=== PATIENT | female | born 1985 | race Caucasian/White ===

== ENCOUNTER → 2020-07-21 09:49 | Outpatient (CLI) | payer OTHER, MEDICAID, SELFPAY ==
[2020-07-22 22:16] LABS: COVID19 Sendout Not Detected (Not Detect)
== END ==
PROVIDERS: Visit Provider Physician Assistant
DX: Z01.812 Encounter for preprocedural laboratory examination (principal)
CPT/HCPCS: 87635

== ENCOUNTER → 2020-08-11 13:17 | Outpatient (CLI) | payer OTHER, MEDICAID, SELFPAY ==
[2020-08-12 13:18] LABS: COVID19 Sendout Not Detected (Not Detect)
== END ==
PROVIDERS: Visit Provider Nurse Practitioner
DX: Z20.828 Contact with and (suspected) exposure to other viral communicable diseases (principal)
CPT/HCPCS: 87635

== ENCOUNTER 2021-01-31 19:15 | Emergency (ER) | payer OTHER, MEDICAID, SELFPAY ==
--- NOTE | 2021-01-31 19:37 | ED_ITS ---
HPI - Eye Problem General Chief complaint: Eye Problems Stated complaint: states, scratched cornea right eye Time Seen by Provider: 01/31/21 19:29 Source: patient Mode of arrival: Ambulatory Limitations: no limitations History of Present Illness HPI Narrative: 35-year-old female daily smoker with noncontributory medical history presents with significant other and a chief complaint of a right eye injury suffered just prior to arrival. Her right eye was accidentally scratched by his fingernail and she now has burning pain and some blurring of vision. She does not were contacts. Her tetanus is current. She denies other injury. MD chief complaint: eye pain and eye injury Onset (ago): minute(s) Onset description: sudden Duration: constant Location: right eye Eye Symptoms: burning Place: home Mechanism: direct trauma Severity: mild If Pain, Quality: sharp and burning Associated symptoms: none Related Data Patient tetanus UTD: Yes Allergies Allergy/AdvReac Type Severity Reaction Status Date / Time No Known Drug Allergies Allergy Verified 01/31/21 20:45 Review of Systems Constitutional Constitutional: Denies chills, Denies fatigue, Denies fever(s), Denies frequent falls, Denies lethargy and Denies weakness Eyes Eyes: Denies change in vision, Denies eye discharge, Reports irritation, Denies loss of vision and Reports eye pain ENT Ears, Nose, Mouth, and Throat: Denies change in voice, Denies dizziness, Denies neck pain, Denies sore throat and Denies throat swelling Cardiovascular Cardiovascular: Denies chest pain, Denies irregular heart rhythm, Denies ligh theadedness, Denies palpitations, Denies dyspnea, Denies dyspnea on exertion and Denies orthopnea Respiratory Respiratory: Denies cough, Denies dyspnea, Denies dyspnea on exertion and Denies wheezing Gastrointestinal Gastrointestinal: Denies abdominal pain, Denies change in bowel habits, Denies diarrhea, Denies nausea and Denies vomiting Musculoskeletal Musculoskeletal: Denies neck pain and Denies numbness Integumentary/Breasts Skin/Breast: Denies pruritus, Denies erythema, Denies rash and Denies wounds Neurologic Neurologic: Denies behavioral changes, Denies confusion, Denies dizziness, Denies frequent falls, Denies loss of vision, Denies numbness and Denies weakness Psychiatric Psychiatric: Denies anxiety, Denies behavioral changes, Denies confusion, Denies depression, Denies homicidal ideation and Denies suicidal ideation Endocrine Endocrine: Denies fatigue, Denies flushing and Denies palpitations Hematologic/Lymphatic Hematologic/Lymphatic: Denies easy bruising Allergic/Immunologic Allergic/Immunologic: Denies urticaria, Denies throat swelling and Denies wheezing Patient History Social History Smoking Status: Current every day smoker Smoking Status: Never smoker alcohol intake frequency: 0-2 drinks per day Substance Use Type: does not use Exam Narrative Exam Narrative: GEN: AOx3 and in mild distress EYES: Pupils are equal, round, and reactive to light and accommodation. Extraoccular muscles are intact bilaterally. Mild right eye scleral injection. Corneal abrasion is visible with the naked eye. No foreign body noted, upper lid diogenes id. Complete resolution of symptoms with use of proparacaine. Dye uptake with fluorescein consistent with corneal abrasion CHEST: Lungs are clear to auscultation bilaterally and free of wheezes, rales, or rhonchi. Heart rate is regular rhythm, there are no murmurs, clicks, rubs, or gallops. There is no chest wall tenderness. ABD: Abdomen is soft and nontender. There is no guarding or rebound. Bowel sounds are normal in all 4 quadrants. There is no mass or organomegaly. EXT: Full painless ROM of all extremities with no loss of sensation or strength. SKIN: Warm, pink, and dry. No erythema or rash Initial Vital Signs Initial Vital Signs: Vital Signs Pulse Rate 75 01/31/21 20:23 Blood Pressure 129/87 01/31/21 20:23 Pulse Oximetry 97 01/31/21 20:23 Course Orders Ordered: Discontinued Medications Fluorescein Sodium (Fluorescein 1 Mg Strip) 1 mg EYE-RIGHT NOW ONE Stop: 01/31/21 19:36 Last Admin: 01/31/21 20:39 Dose: 1 mg Documented by: MARYLIN Proparacaine HCl (Proparacaine 0.5% Oph Amrita) 1 drops EYE-RIGHT NOW ONE Stop: 01/31/21 19:36 Last Admin: 01/31/21 20:38 Dose: 1 drop Documented by: MARYLIN Sulfacetamide (Sulfacetamide 10% Oph Prepack) 1 bottle MISC SEEINSTR ONE Stop: 01/31/21 20:34 Last Admin: 01/31/21 20:38 Dose: 1 bottle Documented by: MARYLIN Discharge Plan Departure Patient Disposition: Home Clinical Impression: Corneal abrasion Qualifiers: Encounter type: initial encounter Laterality: right Qualified Code(s): S05.01XA - Injury of conjunctiva and corneal abrasion without foreign body, right eye, initial encounter Instructions: DI for Corneal Abrasion Activity Restrictions/Additional Instructions: *You have been diagnosed with [acute corneal abrasion] *What to do: *Take medications as directed: 1-2 drops in Right eye while awake until you are better (usually only a few days) *Follow up with your primary care provider in 2-3 days, call for an appointment. Let them know you were seen in the Emergency Department and that we ask that you be seen in follow up *Return to ER if you should have any new, worsening or concerning symptoms Referrals: Sohan Huffman MD [Physician] -
[2021-01-31 20:23] VITALS: BP 129/87; PULSE 75; O2SAT 97
[2021-01-31 20:26] VITALS: RESP 18; TEMP 37.3
[2021-01-31 20:27] VITALS: BMI 29.2
[2021-01-31] MEDS: PROPARACAINE 0.5% OPHTH SOL 1 DROPS EYE-RIGHT (20:38)
[2021-01-31] MEDS: SULFACETAMIDE 10% OPHTH PREPACK 1 BOTTLE MISC (20:38)
[2021-01-31] MEDS: FLUORESCEIN 1 MG STRIP EYE-RIGHT (20:39)
== END 2021-01-31 20:46 | disposition home or self-care (01) ==
PROVIDERS: Emergency Provider Emergency Medicine
DX: S05.01XA Injury of conjunctiva and corneal abrasion without foreign body, right eye, initial encounter (principal)
CPT/HCPCS: 99282

== ENCOUNTER 2023-07-25 16:11 | Emergency (ER) | payer OTHER, MEDICAID, SELFPAY ==
[2023-07-25 16:15] VITALS: BP 144/92; PULSE 92; RESP 16; TEMP 36.9; O2SAT 99; BMI 32.5
--- NOTE | 2023-07-25 16:21 | DI.RAD.S_ITS ---
PROCEDURE: XR WRIST LT MIN 3V INDICATIONS: fall/injury TECHNIQUE: 4 views of the wrist were acquired. COMPARISON: [facility], , XR HAND LT MIN 3V, 07/25/2023, 16:25. FINDINGS: Bones: No fractures or dislocations. No suspicious bony lesions. Scaphoid view: No navicular fractures are seen. Soft tissues: No suspicious soft tissue calcifications. IMPRESSION: No definite displaced fractures are seen on this study. If there is snuffbox tenderness (or other clinical suspicion for a fracture not seen on these images) then a repeat examination would be recommended in 10 to 14 days, following splinting. Dictated by: Kolby Dorado M.D. on 07/25/2023 at 15:48 Approved by: Kolby Dorado M.D. on 07/25/2023 at 15:49
--- NOTE | 2023-07-25 16:21 | DI.RAD.S_ITS ---
PROCEDURE: XR HAND LT MIN 3V INDICATIONS: fall injury TECHNIQUE: 3 views of the hand(s) acquired. COMPARISON: [facility], CR, XR WRIST LT MIN 3V, 07/25/2023, 16:25. FINDINGS: Bones: There is a potential distal radius fracture, with intra-articular involvement No additional fractures or dislocations. Carpal bones are normally aligned. No suspicious bony lesions. Soft tissues: Mild soft tissue swelling is seen. IMPRESSION: There is a potential nondisplaced distal radius fracture, with intra-articular involvement. Differential diagnosis includes artifact. Please correlate with focal tenderness. - If clinically appropriate, please consider a follow-up wrist CT. Dictated by: Kolby Dorado M.D. on 07/25/2023 at 16:01 Approved by: Kolby Dorado M.D. on 07/25/2023 at 16:02
--- NOTE | 2023-07-25 17:33 | ED.FALL ---
HPI - Fall <Naren Gentile PA-C - Last Filed: 07/25/23 18:07> General Chief Complaint: Fall Stated Complaint: GLF left hand and face injury Time Seen by Provider: 07/25/23 17:27 Source: patient Mode of arrival: Ambulatory History of Present Illness HPI Narrative: This is a 37-year-old female presents emergency department after tripping and falling and injuring her left wrist and hand. She also hit her face against the ground resulting in a superficial abrasion. Unsure of tetanus is up-to-date. She denies any numbness in hand or fingers. Denies any decreases in range of motion. No injuries to other parts of her body. Related Data Allergies Allergy/AdvReac Type Severity Reaction Status Date / Time No Known Drug Allergies Allergy Verified 07/25/23 16:15 Review of Systems <Naren Gentile PA-C - Last Filed: 07/25/23 18:07> Review of Systems Narrative: GENERAL: Denies chills, fatigue, malaise, fever, sweats. HEENT: Reports left cheek pain. Denies sinus pain, ear pain, sore throat, difficulty swallowing, dizziness. RESPIRATORY: Denies dyspnea, cough, wheezing, hemoptysis, sputum. CARDIOVASCULAR: Denies chest pain, palpitations, orthopnea, edema, GASTROINTESTINAL: Denies nausea, vomiting, abdominal pain, diarrhea, constipation, melena. : Denies dysuria, frequency, incontinence, hematuria, urinary retention. MUSCULOSKELETAL: Reports left wrist and hand pain SKIN: Denies rash, skin lesions, or other NEUROLOGIC: Denies weakness, headache, numbness, change in speech, confusion, seizures, incoordination. PSYCHIATRIC: No concerning psychosocial issues. 12 point review of systems is negative except for those stated above Patient History <Naren Gentile PA-C - Last Filed: 07/25/23 18:07> Social History Smoking Status: Never smoker Smoking Status: Never smoker alcohol intake frequency: 0-2 drinks per day Substance Use Type: does not use Exam <JELENA Mccarty Last Filed: 07/25/23 18:07> Narrative Exam Narrative: GENERAL: Well-developed patient, in mild distress. HEAD: Atraumatic. Normocephalic. EYES: Pupils equal round and reactive. Extraocular motions intact. No scleral icterus. No injection or drainage. ENT: Nose without bleeding, purulent drainage. Throat without erythema, tonsillar hypertrophy or exudate. Airway patent. NECK: Trachea midline. Non tender CARDIOVASCULAR: Regular rate and rhythm without murmurs, gallops, or rubs. RESPIRATORY: Clear to auscultation. Breath sounds equal bilaterally. No wheezes, rales, or rhonchi. GASTROINTESTINAL: Abdomen soft, non-tender, nondistended. EXTREMITIES: Tenderness to palpation to the distal radius of the left upper extremity as well as tenderness to palpation to the 2nd and 3rd digits. Neurovascularly intact throughout. BACK: Nontender without deformity or crepitance. No flank tenderness. NEURO: AOx3. SKIN: Superficial abrasion to the left cheek, no spreading erythema or warmth to the touch Initial Vital Signs Initial Vital Signs: Vital Signs Temperature 98.4 F 07/25/23 16:15 Pulse Rate 92 H 07/25/23 16:15 Respiratory Rate 16 07/25/23 16:15 Blood Pressure 144/92 H 07/25/23 16:15 Pulse Oximetry 99 07/25/23 16:15 Oxygen Delivery Method Room Air 07/25/23 16:15 <Conchita Couch DO - Last Filed: 07/26/23 07:08> Initial Vital Signs Initial Vital Signs: Vital Signs Temperature 98.4 F 07/25/23 16:15 Pulse Rate 92 H 07/25/23 16:15 Respiratory Rate 16 07/25/23 16:15 Blood Pressure 144/92 H 07/25/23 16:15 Pulse Oximetry 99 07/25/23 16:15 Oxygen Delivery Method Room Air 07/25/23 16:15 Procedures <Naren Gentile PA-C - Last Filed: 07/25/23 18:07> Orthopedic Splinting/Casting Injury #1: Time of procedure: 17:59 Side: left Upper Extremity Injury Location: wrist Upper Extremity Immobilizer: sugar tong splint Post splinting neuro exam: intact and no change Post splinting vascular exam: no change Placed by: Nursing Course <Naren Gentile PA-C - Last Filed: 07/25/23 18:07> Orders Ordered: Discontinued Medications Diphtheria/Tetanus/Acell Pertussis (Tet,Diph,Pertuss(Acell),Vac/Pf 0.5 Ml Syringe) 0.5 ml IM .ONCE ONE Stop: 07/25/23 17:50 Last Admin: 07/25/23 17:53 Dose: 0.5 ml Documented By: KLS Vital Signs Vital signs: Vital Signs - 8 hr 07/25/23 16:15 Temperature 98.4 F Pulse Rate 92 H Respiratory Rate 16 Blood Pressure 144/92 H Pulse Oximetry 99 Oxygen Delivery Method Room Air <Conchita Couch DO - Last Filed: 07/26/23 07:08> Orders Ordered: Discontinued Medications Diphtheria/Tetanus/Acell Pertussis (Tet,Diph,Pertuss(Acell),Vac/Pf 0.5 Ml Syringe) 0.5 ml IM .ONCE ONE Stop: 07/25/23 17:50 Last Admin: 07/25/23 17:53 Dose: 0.5 ml Documented By: KLS Vital Signs Vital signs: Vital Signs - 8 hr 07/25/23 16:15 Temperature 98.4 F Pulse Rate 92 H Respiratory Rate 16 Blood Pressure 144/92 H Pulse Oximetry 99 Oxygen Delivery Method Room Air MDM - Fall <Naren Gentile PA-C - Last Filed: 07/25/23 18:07> Imaging Data Extremity x-ray #1: Radiologist's Impression: [address] [address] XRay Report Signed Patient: Rosio Dunn MR#: [id number] : 1985 Acct:[id number] Age/Sex: 37 / F Date of Service: 07/25/23 Loc: ED Accession Number: [id number] Procedure: XR wrist LT min 3V Ordering Provider: Conchita Couch D.O. PROCEDURE: XR WRIST LT MIN 3V INDICATIONS: fall/injury TECHNIQUE: 4 views of the wrist were acquired. COMPARISON: [facility], CR, XR HAND LT MIN 3V, 07/25/2023, 16:25. FINDINGS: Bones: No fractures or dislocations. No suspicious bony lesions. Scaphoid view: No navicular fractures are seen. Soft tissues: No suspicious soft tissue calcifications. IMPRESSION: No definite displaced fractures are seen on this study. If there is snuffbox tenderness (or other clinical suspicion for a fracture not seen on these images) then a repeat examination would be recommended in 10 to 14 days, following splinting. Dictated by: Kolby Dorado M.D. on 07/25/2023 at 15:48 Approved by: Kolby Dorado M.D. on 07/25/2023 at 15:49 Extremity x-ray #2: Radiologist's Impression: [address] [address] XRay Report Signed Patient: Rosio Dunn MR#: [id number] : 1985 Acct:[id number] Age/Sex: 37 / F Date of Service: 07/25/23 Loc: ED Accession Number: [id number] Procedure: XR hand LT min 3V Ordering Provider: Conchita Couch D.O. PROCEDURE: XR HAND LT MIN 3V INDICATIONS: fall injury TECHNIQUE: 3 views of the hand(s) acquired. COMPARISON: [facility], , XR WRIST LT MIN 3V, 07/25/2023, 16:25. FINDINGS: Bones: There is a potential distal radius fracture, with intra-articular involvement No additional fractures or dislocations. Carpal bones are normally aligned. No suspicious bony lesions. Soft tissues: Mild soft tissue swelling is seen. IMPRESSION: There is a potential nondisplaced distal radius fracture, with intra-articular involvement. Differential diagnosis includes artifact. Please correlate with focal tenderness. - If clinically appropriate, please consider a follow-up wrist CT. Dictated by: Kolby Dorado M.D. on 07/25/2023 at 16:01 Approved by: Kolby Dorado M.D. on 07/25/2023 at 16:02 MDM Narrative Medical decision making narrative: MDM * differential diagnosis includes but not limited to fracture, neurovascular injury, facial fracture * Prior records reviewed: Patient has not been to this emergency department in the past. * My lab interpretation: None obtained * My imgaing interpretation: Wrist x-ray was negative and report the hand x-ray mentions a nondisplaced distal radius fracture with intra-articular involvement. * Clinical Decision Rules/Scores evaluated: None * Independent discussions with: None ED Course: This is a 37-year-old female presents to the emergency department due to a ground level fall. There was an abrasion to the left cheek as well as some tenderness on palpation but shared decision-making utilized and no advanced imaging ordered. Patient will follow up with the primary care provider if pain continues. X-rays of the upper extremity showed a nondisplaced distal radius fracture with intra-articular involvement. Patient was placed in a sugar-tong splint and will follow up with Orthopedics. Patient preferred ibuprofen and Tylenol for pain control. Shared Decision Making: Discussed plan with patient who is comfortable with the plan. Social Considerations: None Disposition: Discharged to home Discharge Plan Departure Patient Disposition: Home Clinical Impression: Distal radial fracture Activity Restrictions/Additional Instructions: Thank you for coming to the [facility] Emergency Department today. Please follow-up with your primary care provider if the pain is she continues. The x-ray of your wrist showed a radius fracture. Please keep your arm in the splint and did not use it until you are able to follow up with orthopedics. Please call their office tomorrow to arrange for an appointment. I hope you feel better soon. Please follow up with your primary care provider within a week if your symptoms continue. If you do not have a primary care provider please contact the [facility] Resource line at [phone]. They will ask some questions about your medical history and help you get set up with a provider in the community. Referrals: Miscellaneous,DoctorMD [Primary Care Provider] - Gulshan Rob MD [Physician] - (f/u distal radius fracture w/ intra-articular involvement. Thank you! ) Stand Alone Forms: Patient Portal/API ED Sign-out <Conchita Couch DO - Last Filed: 07/26/23 07:08> Cosign ED Attending Darius Attestation: I was immediately available in the department for consultation. Documentation has been reviewed. Case was discussed images were reviewed. Plan for splint, orthopedic follow-up within the next week.
[2023-07-25] MEDS: TET,DIPH,PERTUSS(ACELL),VAC/PF 0.5 ML SYRINGE IM (17:53)
== END 2023-07-25 18:21 | disposition home or self-care (01) ==
PROVIDERS: Emergency Provider Physician Assistant Medical
DX: S52.502A Unspecified fracture of the lower end of left radius, initial encounter for closed fracture (principal); W01.0XXA Fall on same level from slipping, tripping and stumbling without subsequent striking against object, initial encounter; Z23 Encounter for immunization
CPT/HCPCS: 29125; 73110; 73130; 90471; 99283; 99284; 90715

== ENCOUNTER → 2023-08-10 08:18 | Outpatient (CLI) | payer OTHER, MEDICAID, SELFPAY ==
--- NOTE | 2023-08-10 | DI.MRI.S_ITS ---
PROCEDURE: MR WRIST LT WO CON INDICATIONS: Fracture of unspecified carpal bone, left wrist, sequela TECHNIQUE: Noncontrast coronal proton density fast spin echo and T2 fast spin echo with fat saturation; coronal 3-D gradient echo, axial T1 spin echo and T2 fast spin echo with fat saturation, sagittal T1 spin echo through the wrist. COMPARISON: [facility], CR, XR HAND LT MIN 3V, 07/25/2023, 16:25. [facility], CR, XR WRIST 3+ VIEWS LEFT, 07/28/2023, 10:08. FINDINGS: Image quality: Excellent. Bones and cartilage: The carpal bones are normally aligned. No acute fracture or dislocation. No evidence of avascular necrosis. Well corticated fragment adjacent to tip of ulnar styloid is seen suggestive of remote healed injury. No suspicious intraosseous lesions. Carpal ligaments: The scapholunate and lunotriquetral ligaments appear intact. In the absence of intra-articular contrast, the extrinsic carpal ligaments are not well identified. On sagittal images, the pisohamate ligament appears intact. Triangular fibrocartilage complex: Subtle signal abnormality within central portion of triangular fibrocartilage, subtle perforation cannot be excluded. The adjacent meniscal homolog appears normal in the absence of intra-articular contrast. The extensor carpi ulnaris tendon is thickened at the level of ulnar styloid and triquetrum. He he Tendons and soft tissues: The carpal tunnel structures appear normal, including the median nerve. The ulnar nerve appears normal within Guyon's canal. Rest of the extensor tendon compartments demonstrate normal morphology, without pathologic tendon sheath fluid. No soft tissue ganglion cysts. IMPRESSION: 1. No marrow edema. No acute fracture or dislocation. Suggestion of remote injury involving tip of ulnar styloid. No suspicious bony lesion. No evidence of avascular necrosis. 2. The scapholunate and lunotriquetral ligaments are grossly intact. 3. Finding is concerning for subtle perforation involving central portion of triangular fibrocartilage. 4. Tendinosis involving extensor carpi ulnaris tendon at the level of ulnar styloid. Rest of the extensor and flexor tendons are grossly intact. Dictated by: Pillo Venegas M.D. on 08/10/2023 at 11:50 Approved by: Pillo Venegas M.D. on 08/10/2023 at 11:54
== END ==
PROVIDERS: Referring Provider Orthopaedic Surgery Adult Reconstructive Orthopaedic Surgery; Visit Provider Orthopaedic Surgery Adult Reconstructive Orthopaedic Surgery
DX: S62.102S Fracture of unspecified carpal bone, left wrist, sequela (principal); X58.XXXS Exposure to other specified factors, sequela
CPT/HCPCS: 73221

== ENCOUNTER → 2024-12-19 15:51 | Outpatient (CLI) | payer OTHER, SELFPAY ==
[2024-12-19 19:06] LABS: HIV 1 & 2 Ab/Ag 4th Gen Combo NEGATIVE (NEGATIVE)
[2024-12-21 01:07] LABS: HBsAg Screen Negative (Negative); Hepatitis A Antibody IgM Negative (Negative); Hepatitis B Core Antibody IgM Negative (Negative); Hepatitis C Antibody Non Reactive (Non Reactive)
== END ==
LOC: LAB 15:52
PROVIDERS: Referring Provider Student in an Organized Health Care Education/Training Program; Visit Provider Student in an Organized Health Care Education/Training Program
DX: Z11.3 Encounter for screening for infections with a predominantly sexual mode of transmission (principal)
CPT/HCPCS: 36415; 80074; 86592; 87389